=== PATIENT | female | born 1965 | race American Indian/Alaskan Native ===

== ENCOUNTER 2021-09-27 11:47 | Emergency (ER) | payer MEDICARE, OTHER ==
[2021-09-27 11:59] VITALS: BP 187/100
--- NOTE | 2021-09-27 13:50 | Emergency Department Report ---
ED General Adult HPI - General Chief complaint: Pain General Stated complaint: CANT BREATHE Time Seen by Provider: 09/27/21 13:47 Source: patient Mode of arrival: Ambulatory Limitations: No Limitations - History of Present Illness Initial comments: 55-year-old black female presents to the emergency department for evaluation of sore throat and shortness of breath. She states that she just left from having an EGD at her GI doctor's office, and had hot soup immediately after leaving procedure. She states that her throat hurts so bad that she feels like she cannot take a deep breath. -: Sudden Severity scale (0 -10): 0 Consistency: now resolved Associated Symptoms: denies: chest pain, cough, diaphoresis, fever/chills, headaches, loss of appetite, malaise, nausea/vomiting, rash, seizure, shortness of breath, syncope, weakness Treatments Prior to Arrival: none - Related Data Home Medications Medication Instructions Recorded Confirmed Last Taken Potassium Chloride [Klor-Con 10] 10 meq PO DAILY 09/29/13 01/22/15 05/03/14 Previous Rx's Medication Instructions Recorded Last Taken Type Acetaminophen/Codeine [Tylenol #3] 1 tab PO Q6H PRN #14 tab 01/22/15 Unknown Rx Clindamycin [Cleocin] 300 mg PO Q8H #30 cap 01/22/15 Unknown Rx Allergies Allergy/AdvReac Type Severity Reaction Status Date / Time ibuprofen [From Motrin] Allergy Hives Verified 05/03/14 02:56 Penicillins Allergy Unknown Verified 05/03/14 02:56 prednisone Allergy Headache Verified 05/03/14 03:06 ED Review of Systems ROS: Stated complaint: CANT BREATHE Other details as noted in HPI Comment: All other systems reviewed and negative Constitutional: denies: chills, diaphoresis, fever, malaise, weakness Eyes: denies: eye pain, eye discharge ENT: throat pain. denies: ear pain Respiratory: shortness of breath. denies: cough, orthopnea, SOB with exertion, SOB at rest Cardiovascular: denies: chest pain, palpitations, dyspnea on exertion, edema, syncope, paroxysmal nocturnal dyspnea Endocrine: no symptoms reported Gastrointestinal: denies: abdominal pain, nausea, vomiting Genitourinary: denies: urgency, dysuria Musculoskeletal: denies: back pain Skin: denies: rash, lesions Neurological: denies: headache, weakness Psychiatric: denies: anxiety, depression Hematological/Lymphatic: denies: easy bleeding, swollen glands ED Past Medical Hx - Past Medical History Hx Congestive Heart Failure: No Hx Diabetes: No Hx Asthma: No Hx COPD: No Hx Tuberculosis: Yes (1994) Additional medical history: Membranous glomerulonephritis Kidney disease, Pneumonia - Surgical History Additional Surgical History: TUBAL LIGATION 1991 - Social History Smoking Status: Never Smoker Substance Use Type: None - Medications Home Medications: Home Medications Medication Instructions Recorded Confirmed Last Taken Type Potassium Chloride [Klor-Con 10] 10 meq PO DAILY 09/29/13 01/22/15 05/03/14 History Acetaminophen/Codeine [Tylenol #3] 1 tab PO Q6H PRN #14 tab 01/22/15 Unknown Rx Clindamycin [Cleocin] 300 mg PO Q8H #30 cap 01/22/15 Unknown Rx ED Physical Exam - General Limitations: No Limitations General appearance: alert, in no apparent distress - Head Head exam: Present: atraumatic, normocephalic - Eye Eye exam: Present: normal appearance. Absent: conjunctival injection - ENT ENT exam: Present: mucous membranes moist. Absent: normal orophraynx (Minimal erythema posterior oropharynx) - Expanded ENT Exam Expanded Mouth exam: Present: normal external inspection, tongue normal. Absent: drooling Teeth exam: Present: normal inspection Throat exam: Negative: tonsillar erythema, tonsillomegaly, tonsillar exudate, R peritonsillar mass, L peritonsillar mass - Neck Neck exam: Present: normal inspection, full ROM. Absent: tenderness, lymphadenopathy - Respiratory Respiratory exam: Present: normal lung sounds bilaterally. Absent: respiratory distress, wheezes, rales, rhonchi, stridor, chest wall tenderness - Cardiovascular Cardiovascular Exam: Present: regular rate, normal heart sounds - GI/Abdominal GI/Abdominal exam: Present: soft. Absent: distended, tenderness - Extremities Exam Extremities exam: Present: normal inspection - Back Exam Back exam: Present: normal inspection. Absent: tenderness - Neurological Exam Neurological exam: Present: alert, oriented X3 - Psychiatric Psychiatric exam: Present: normal affect, normal mood, depressed - Skin Skin exam: Present: warm, dry, intact, normal color ED Course Vital Signs 09/27/21 11:56 Temperature 97.7 F Pulse Rate 98 H Respiratory 16 Rate Blood Pressure 187/100 [Left] O2 Sat by Pulse 97 Oximetry - Reevaluation(s) Reevaluation #1: 09/27/21 13:48 States that she feels much better and is able to take deep breaths without a problem. She denies symptoms at this time. ED Medical Decision Making - Medical Decision Making 55-year-old black female presents to the emergency department for evaluation of sore throat and shortness of breath. She states that she just left from having an EGD at her GI doctor's office, and had hot soup immediately after leaving procedure. She states that her throat hurts so bad that she feels like she cannot take a deep breath. Patient denies shortness of breath and sore throat at this time. She states that while she was waiting to be evaluated in the ER, she called her GI doctor's office and he told her that it is probable that she just ate hot soup too quickly and she should just give it some time. Patient states that she feels much better, so she will be discharged home to follow-up with her GI doctor as planned. Plan of care discussed with patient and she verbalized understanding and agreement with. Critical care attestation.: If time is entered above; I have spent that time in minutes in the direct care of this critically ill patient, excluding procedure time. ED Disposition Clinical Impression: Sore throat Disposition: 01 HOME / SELF CARE / HOMELESS Is pt being admited?: No Does the pt Need Aspirin: No Condition: Stable Instructions: Pharyngitis Additional Instructions: Follow-up with GI as planned. Time of Disposition: 13:49
== END 2021-09-27 14:21 | disposition home or self-care (01) ==
LOC: ED 11:47
DX: J02.9 Acute pharyngitis, unspecified (principal); Z98.51 Tubal ligation status; Z88.0 Allergy status to penicillin; Z88.6 Allergy status to analgesic agent; Z88.8 Allergy status to other drugs, medicaments and biological substances; Z79.899 Other long term (current) drug therapy
CPT/HCPCS: 99282